=== PATIENT | female | born 1970 | race Hispanic/Latino ===

== ENCOUNTER 2020-05-08 06:33 | Day surgery (SDC) | payer OTHER ==
[~2020-05-08] VITALS: Ht 149.9 cm; Wt 52.6 kg
[2020-05-08] VITALS (7 sets, daily range): BP systolic 102–115; BP diastolic 53–69
[~2020-05-08 06:33] MED LIST: CALC600T15 PO; DIPH50CA4 PO; GABA-531 PO; GABA600T10 PO; GLUC-172 PO; IBUP-2070 PO; LEVO137T2 PO; MULTIVITAMIN PO; OMEG-148 PO; SODIUM CHLORIDE 0.9% 1000ML 1,000 ML IV ONE; VITAMIN D2
[2020-05-08] MEDS ORDERED: OMEP40CA13 PO (07:59)
[2020-05-08] MEDS ORDERED: PROPOFOL 10 MG/ML 20ML VIAL IV ONE (09:14)
== END 2020-05-08 10:00 | disposition home or self-care (01) ==
LOC: DAH 06:33 → ENDO 06:33
PROVIDERS: ATTEND Internal Medicine Gastroenterology
DX: K22.70 Barrett's esophagus without dysplasia (principal); K21.00 Gastro-esophageal reflux disease with esophagitis, without bleeding; Z20.822 Contact with and (suspected) exposure to COVID-19; K44.9 Diaphragmatic hernia without obstruction or gangrene; K29.70 Gastritis, unspecified, without bleeding; E03.9 Hypothyroidism, unspecified; K59.00 Constipation, unspecified; Z98.891 History of uterine scar from previous surgery; Z72.89 Other problems related to lifestyle; Z79.899 Other long term (current) drug therapy; Z98.890 Other specified postprocedural states; Z79.890 Hormone replacement therapy
CPT/HCPCS: 43239; A4215 ×2; A4221; A4222; A4223; A4606; A4620; A4657; A4663; C9803; J2704; J7030; U0003

== ENCOUNTER 2022-05-20 09:58 | Day surgery (SDC) | payer OTHER ==
[~2022-05-20] VITALS: Ht 149.9 cm; Wt 56.2 kg
[2022-05-20] VITALS (18 sets, daily range): BP systolic 102–138; BP diastolic 63–79
[~2022-05-20 09:58] MED LIST changes: +CALC-1125 PO; -CALC600T15 PO; -DIPH50CA4 PO; -GLUC-172 PO; -IBUP-2070 PO; -OMEG-148 PO; +OMEP40CA21 PO; -SODIUM CHLORIDE 0.9% 1000ML 1,000 ML IV ONE
[2022-05-20] MEDS ORDERED: 0.9%NACL 1000ML 1,000 ML IV ONE (10:44)
[2022-05-20] MEDS ORDERED: PROPOFOL 10 MG/ML 20ML VIAL IV ONE (13:04)
[2022-05-20] MEDS ORDERED: LIDOCAINE HCL 400MG/20ML VIAL ONE (13:04)
== END 2022-05-20 13:50 | disposition home or self-care (01) ==
LOC: ENDO 09:58 → DAH 09:59 → ENDO 13:50
PROVIDERS: ATTEND Internal Medicine Gastroenterology
DX: K22.70 Barrett's esophagus without dysplasia (principal); Z20.822 Contact with and (suspected) exposure to COVID-19; K59.00 Constipation, unspecified; K44.9 Diaphragmatic hernia without obstruction or gangrene; K31.7 Polyp of stomach and duodenum; K31.89 Other diseases of stomach and duodenum; K21.00 Gastro-esophageal reflux disease with esophagitis, without bleeding; E03.9 Hypothyroidism, unspecified; Z98.890 Other specified postprocedural states; Z98.891 History of uterine scar from previous surgery; Z72.89 Other problems related to lifestyle; Z79.899 Other long term (current) drug therapy
CPT/HCPCS: 87426; 43251; 81025; 43239; J3490; J7030 ×2; J2704; A4620; A4215 ×2; A4223; A4657; A7002; A4222; A4221; A4663; A4606

== ENCOUNTER 2023-10-01 06:06 | Day surgery (SDC) | payer OTHER ==
[~2023-10-01] VITALS: Ht 149.9 cm; Wt 56.7 kg
[2023-10-01] VITALS (11 sets, daily range): BP systolic 110–143; BP diastolic 64–79; PULSE 15–71; RESP 15–17
[~2023-10-01 06:06] MED LIST changes: -CALC-1125 PO; +ROPI1TAB46 PO; +VITAMIN D PO; -VITAMIN D2
[2023-10-01] MEDS: 0.9%NACL 1000ML 1,000 ML IV ONE (06:36)
[2023-10-01] MEDS ORDERED: PROPOFOL 10 MG/ML 20ML VIAL IV ONE (07:05)
== END 2023-10-01 08:30 | disposition home or self-care (01) ==
LOC: ENDO 06:06 → DAH 06:06 → ENDO 08:30
PROVIDERS: ATTEND Internal Medicine Gastroenterology
DX: R13.10 Dysphagia, unspecified (principal); K29.50 Unspecified chronic gastritis without bleeding; K22.70 Barrett's esophagus without dysplasia; K44.9 Diaphragmatic hernia without obstruction or gangrene; K31.89 Other diseases of stomach and duodenum; E03.9 Hypothyroidism, unspecified; E78.5 Hyperlipidemia, unspecified; K21.9 Gastro-esophageal reflux disease without esophagitis; K57.30 Diverticulosis of large intestine without perforation or abscess without bleeding; D13.1 Benign neoplasm of stomach; K59.00 Constipation, unspecified; K64.9 Unspecified hemorrhoids; Z79.899 Other long term (current) drug therapy
CPT/HCPCS: 81025; 43239; J7030 ×2; J2704; A4620; A4215; A4223; A7002; A4222; A4221; A4663; A4606; J3490